=== PATIENT | female | born 1985 | race Hispanic/Latino ===

== ENCOUNTER 2017-08-11 21:16 | Observation (INO) | payer BC ==
[2017-08-11 22:13] LABS: #Lymphocytes 1.2 thou/uL (1.20-3.40); #Monocytes 0.3 thou/uL (0.11-0.59); #Neutrophils 8.1 thou/uL (1.40-6.50); %Basophils 0.1 % (0.0-1.0); %Eosinophils 0.1 % (0.0-10.0); %Lymphocytes 12.2 % (21.0-51.0); %Monocytes 3.3 % (0.0-10.0); Hematocrit 36.4 % (36.0-47.0); Mean Platelet Volume 7.8 fL (7.4-10.4); Red Blood Cell (RBC) Count 3.85 mill/uL (4.20-5.40); White Blood Cell (WBC) Count 9.6 thou/uL (4.8-10.8)
[2017-08-11 22:29] LABS: ALT (SGPT) 283 U/L (8-55); AST (SGOT) 506 U/L (5-34); Alkaline Phosphatase 92 U/L (40-150); Anion Gap 11 mmol/L (10-20); BUN (Urea Nitrogen) 11 mg/dL (7.0-18.7); Bilirubin, Total 1.6 mg/dL (0.2-1.2); Calc. Creatinine Clearance 0 mL/min (70-130); Calcium 8.7 mg/dL (7.8-10.44); Carbon Dioxide 23 mmol/L (22-29); Chloride 109 mmol/L (98-107); Estimated GFR-MDRD 86; Globulin 2.9 g/dL (2.4-3.5); Lipase 23 U/L (8-78); Protein, Total 6.5 g/dL (6.0-8.3)
--- NOTE | 2017-08-11 22:52 | ULT ---
GALLBLADDER ULTRASOUND: 08/11/17 HISTORY: Right upper quadrant pain. Real time images of the upper abdomen demonstrate multiple echogenic foci which shadowing within the gallbladder consistent with gallstones. Common duct is in the 7 to 8 mm range. The gallbladder wall appears somewhat thickened and edematous. The visualized liver parenchyma is unremarkable. Right ki dney is normal in size and nonobstructed. The pancreas is partially obscured. IMPRESSION: Multiple cholelithiasis with a thickened gallbladder wall and a mildly dilated common bile duct and a positive ultrasound Sanabria's sign. POS: [facility]
[2017-08-11] MEDS ORDERED: Ondansetron HCl/PF 4 MG/2 ML Vial ONE (23:35)
[2017-08-11] MEDS ORDERED: Morphine 2 MG/ML SYRINGE ONE (23:35)
[2017-08-11] MEDS ORDERED: Meropenem 1 GM, Admixture Fee 1 EACH in Sodium Chloride 0.9% 100 ML IVPB SCH (23:45)
[2017-08-12] MEDS ORDERED: Morphine 2 MG/ML SYRINGE SLOW IVP PRN ×5 (00:36→23:01)
[2017-08-12] MEDS ORDERED: Meropenem 1 GM, Admixture Fee 1 EACH in Sodium Chloride 0.9% 100 ML IVPB SCH (00:45)
[2017-08-12] MEDS: Sodium Chloride 0.9% 1,000 ML IV SCH ×4 (01:04→23:48)
[2017-08-12 01:27] VITALS: BMI 25.2
[2017-08-12 05:34] LABS: #Eosinphils 0.1 thou/uL (0.0-0.7); #Lymphocytes 2.1 thou/uL (1.20-3.40); #Monocytes 0.5 thou/uL (0.11-0.59); #Neutrophils 3.9 thou/uL (1.40-6.50); %Basophils 0.5 % (0.0-1.0); %Lymphocytes 31.6 % (21.0-51.0); %Monocytes 7.9 % (0.0-10.0); Hematocrit 34.3 % (36.0-47.0); Mean Platelet Volume 8.2 fL (7.4-10.4); Red Blood Cell (RBC) Count 3.59 mill/uL (4.20-5.40); White Blood Cell (WBC) Count 6.7 thou/uL (4.8-10.8)
[2017-08-12 05:51] LABS: ALT (SGPT) 365 U/L (8-55); AST (SGOT) 476 U/L (5-34); Alkaline Phosphatase 89 U/L (40-150); Anion Gap 8 mmol/L (10-20); BUN (Urea Nitrogen) 9 mg/dL (7.0-18.7); Bilirubin, Total 1.7 mg/dL (0.2-1.2); Calc. Creatinine Clearance 0 mL/min (70-130); Calcium 8.6 mg/dL (7.8-10.44); Carbon Dioxide 27 mmol/L (22-29); Chloride 109 mmol/L (98-107); Estimated GFR-MDRD 85; Globulin 2.7 g/dL (2.4-3.5); Lipase 18 U/L (8-78)
[2017-08-12] MEDS: Meropenem 1 GM, Admixture Fee 1 EACH in Sodium Chloride 0.9% 100 ML IVPB SCH ×2 (12:01→20:40)
[2017-08-12] MEDS ORDERED: Ondansetron HCl/PF 4 MG/2 ML Vial ONE ×2 (14:06→16:08)
[2017-08-12] MEDS ORDERED: Fentanyl 100 MCG/2 ML VIAL ONE ×2 (15:30→18:46)
[2017-08-12] MEDS ORDERED: Lidocaine 2% w/Epinephrine 1:200K 20 ML VIAL ONE (15:35)
[2017-08-12] MEDS ORDERED: Iothalamate Meglumine 60% 50 ML VIAL FS ONE ×2 (15:35→17:40)
[2017-08-12] MEDS ORDERED: Bupivacaine 0.25% HCL 30 ML VIAL ONE (15:35)
[2017-08-12] MEDS ORDERED: Propofol 200 MG/20 ML VIAL ONE ×2 (16:08)
[2017-08-12] MEDS ORDERED: PHENYLEPHRINE-NS 100 MCG/ML 10 ML SYRINGE ONE (16:08)
[2017-08-12] MEDS ORDERED: Ketorolac Tromethamine 30 MG/ML VIAL ONE (16:08)
[2017-08-12] MEDS ORDERED: Lidocaine 1% PF 5 ML VIAL ONE (16:08)
--- NOTE | 2017-08-12 16:41 | HP ---
CHIEF COMPLAINT: Epigastric pain. HISTORY OF PRESENT ILLNESS: Ms. Tan is a 31-year-old woman, who presented to the emergency room with a 1-day history of severe epigastric pain, radiating to her right upper quadrant, nausea and vo miting. She did not have any fevers, chills, jaundice or icterus. A CT done at an outside hospital suggestive of cholecystitis and she was sent here for ultrasound, which confirmed multiple gallston es with a thickened gallbladder wall, positive ultrasound Sanabria sign. Her bile duct was mildly dil ated and her LFTs were also slightly elevated. Her white count was initially elevated at 11.5, but has come down. Her bilirubin has gone from 1.3-1.7. AST went from 250-506 and then down to 476. A LT has gone from 127-365. The patient is currently uncomfortable and just has some soreness in her epigastric area. She states that she has had minor episodes of discomfort in the epigastrium after eating before, but none as severe as yesterday. The pain was brought on by eating and relieved by p ain medication received in the emergency room. It does hurt to take a deep breath or cough. PAST MEDICAL HISTORY: None. The patient used to have hypertension, but this resolved after gastric sleeve. PAST SURGICAL HISTORY: Gastric sleeve in [address] Smith. FAMILY HISTORY: Diabetes, hypertension, colon and breast cancer as well as multiple family members with gallstones. SOCIAL HISTORY: She does not smoke or drink, but does occasionally use marijuana. OUTPATIENT MEDICATIONS: None. INPATIENT MEDICATIONS: She was started on meropenem in the emergency room. ALLERGIES: She has an adverse drug reaction to PROCHLORPERAZINE. LABS AND IMAGING: Are as per HPI. REVIEW OF SYSTEMS: Ten-system review of systems is negative except per HPI. PHYSICAL EXAMINATION: VITAL SIGNS: The patient has been afebrile since her admission. Heart rate 55, respirations 14, 99 % saturated on room air, blood pressure 102/65. GENERAL: Reveals a healthy appearing young woman, in no acute distress. She is not jaundiced or ic teric in appearance. She is not flushed or toxic. HEENT: Unremarkable. NECK: Supple without lymphadenopathy or thyroid nodules. HEART: Regular in its rate and rhythm without murmurs, rubs or gallops. LUNGS: Clear to auscultation bilaterally. ABDOMEN: Soft and nondistended. She is moderately tender to palpation in the right upper quadrant and epigastrium without rigidity, rebound or guarding. There are no palpable masses or hernias and her laparoscopic incisions are well healed. EXTREMITIES: Warm and well perfused without edema. NEUROLOGIC: No focal deficits. PSYCHIATRIC: Alert, oriented, and appropriate. ASSESSMENT: Cholelithiasis, cholecystitis, possible choledocholithiasis. She has been seen by Dr. Diaz who favors laparoscopic cholecystectomy with intraoperative cholangiogram first. If this is positive, he would plan to do an ERCP under the same anesthesia. The patient's diagnosis and rec ommended treatment plan were discussed with her in detail. The procedure of laparoscopic cholecyste ctomy was also explained. The inherent risks of surgery were discussed. These include but are not limited to bleeding, infection, risks of anesthesia, damage to nearby structures including bowel, li baylee and bile duct, need for other operations, need for open surgery and she understands and accepts these risks and wishes to proceed. We will continue her on meropenem in the perioperative period.
--- NOTE | 2017-08-12 17:31 | RAD ---
OPERATIVE CHOLANGIOGRAM: History: Intraoperative films. FINDINGS: A series of four films presented for interpretation. These show filling of a nondilated common bile duct. I do not see any definite filling defects. There is minimal emptying into the duodenum. Distal common duct is slightly irregular. IMPRESSION: No evidence of filling defects or signs of obstruction. POS: [facility]
[2017-08-12] MEDS ORDERED: Ondansetron HCl/PF 4 MG/2 ML Vial IVP PRN (18:31)
--- NOTE | 2017-08-12 18:45 | CON ---
DATE OF CONSULTATION: 08/12/2017 REFERRING PHYSICIAN: Navid Gonzalez M.D. REASON FOR CONSULTATION: Abdominal pain, abnormal LFTs and also dilation of the CBD on sonogram. HISTORY OF PRESENT ILLNESS: Ms. Loly Tan is a very pleasant 31-year-old female with gallstones, common bile duct stone and dilation of the CBD on sonogram. The patient has had gastric sleeve luba ann marie [address] Aakash Smith. She has lost 150 pounds since surgery. The patient has had abd ominal pain off and on. On 09/2016, she had seen Dr. Aakash Smith for abdominal pain. She underwent a sonogram and was told she had gallstones. She was advised to wait and see if the pain recurs. Th patient has had mild pain off and on. The patient with severe abdominal pain yesterday with some nausea and vomiting. The pain is over the right upper quadrant epigastric area and periumbilical ar ea. The patient came to the ER, had abdominal sonogram. Sonogram shows multiple gallstones in the gallbladder and also dilation of CBD. There is also elevation in LFTs indicative of possibly common bile duct stone. The patient continued to have abdominal pain and nausea. She has had no fever or chills. There is no family history of gallstones. She has no relevant symptoms. ALLERGIES: PHENERGAN. SOCIAL HISTORY: The patient is . She does not smoke or drink alcohol. PAST MEDICAL HISTORY: Obesity, status post gastric sleeve 2 years ago. No history of diabetes, hyp ertension, heart disease, lung disease. PAST SURGICAL HISTORY: Status post gastric sleeve 2 years ago. MENSTRUAL HISTORY: Periods are regular. LMP at the present time. She bleeds for 4 days. REVIEW OF SYSTEMS: A 10-point system review is really unremarkable except for the abdominal pain an d nausea. PHYSICAL EXAMINATION: GENERAL: The patient is in moderate discomfort. VITAL SIGNS: Afebrile, pulse is 62, blood pressure 112/67. HEENT: Conjunctivae clear. NECK: Supple. No adenitis or thyromegaly noted. CARDIOVASCULAR: First and second heart sounds normal. LUNGS: Clear to auscultation. ABDOMEN: Soft to palpate. Abdomen is tender with right upper quadrant epigastric area. There is n o rebound or guarding. No organomegaly or masses. EXTREMITIES: Reveal no edema. LABORATORY DATA: From today, sodium 140, potassium 4, chloride 109, bicarbonate 27, BUN is 9, creat inine is 0.79, glucose is 87, calcium 8.7, bilirubin 1.7, AST came down to 476 from 506, ALT 365, al kaline phosphatase is 89, lipase 18. CBC: WBC 6700, hemoglobin 11.5, hematocrit 34.6, MCV 95.6, pl atelet count 197,000, volume loss 58, lymphocytes 31, monocytes 7. Abdominal sonogram, multiple gal lstones in the gallbladder and also dilation of the CBD to 7 mm. CLINICAL IMPRESSION: 1. Acute cholecystitis, choledocholithiasis. 2. Status post gastric sleeve in 2014. PLAN: Laparoscopic cholecystectomy followed by ERCP followed by cholecystomy. I will discuss with Dr. Gonzalez and see how to . I met with the patient's and explained to him about the p rocedure and the risks, etc. She has had gastric sleeve surgery which may make it difficult to real ly maneuver the scope. This was explained to the patient and patient's . They fully underst ood the procedure, risks, and benefits. I will plan for ERCP today after discussing with Dr. Sofia cleary
--- NOTE | 2017-08-12 19:02 | RAD ---
ERCP SIX VIEWS: History: Patient is status post cholecystectomy. Comparison: Operative cholangiogram done earlier today. FINDINGS: Contrast is injected into the common bile duct which is nondilated. On the previous operative cholan giogram there is some irregularity to the distal common duct, more difficult to assess on these imag es. There is a balloon present in the area of narrowing on some of these films. IMPRESSION: ERCP findings as above. POS: [facility]
[2017-08-12] MEDS ORDERED: HYDROcodone/Acetaminophen 7.5/325 mg Tablet PO PRN ×2 (20:06)
[2017-08-12] MEDS: Ondansetron HCl/PF 4 MG/2 ML Vial SLOW IVP PRN (23:18)
[2017-08-13] MEDS: Meropenem 1 GM, Admixture Fee 1 EACH in Sodium Chloride 0.9% 100 ML IVPB SCH ×3 (04:27→20:16)
[2017-08-13] MEDS: Sodium Chloride 0.9% 1,000 ML IV SCH ×2 (04:30→17:19)
--- NOTE | 2017-08-13 05:30 | OP ---
DATE OF PROCEDURE: 08/12/2017 OPERATIVE PROCEDURE: 1. Endoscopic retrograde cholangiopancreatography with papillotomy. 2. Common bile duct stone extraction with a balloon size 9-12 mm biliary balloon. PREOPERATIVE DIAGNOSES: Abnormal liver function tests, common bile duct stone. POSTOPERATIVE DIAGNOSIS: Common bile duct stone, status post extraction with a balloon. Two stones removed, one stone was measuring approximately 1 cm, the other one was probably about 7 mm. PROCEDURE IN DETAIL: The patient was already intubated for her laparoscopic cholecystectomy. The p atient was placed on the fluoroscopic table on her left lateral position and turned on her stomach. A bite block was placed. A Pentax video duodenoscope under direct vision was passed down the oroph arynx, past the gastroesophageal junction, into the stomach and subsequently into the descending duo denum. The papilla was identified. The papilla was selectively cannulated over a guidewire. Upon injection of contrast, shows normal caliber bile duct, but does show a filling defect. A papillotom y was made at the 12 o'clock position. Almost about 1.25-1.5 cm papillotomy made. After the papill otomy, this drainage of bile and a small stone came up. The papillotome was changed the biliary bal loon size 9-12 mm. The balloon was introduced into the common bile duct to 9mm and the balloon was brought out with the extraction of 2 stones. Subsequently, the balloon was inflated to 12 mm and ag ain, the bile duct was swept by the balloon and there was good biliary drainage noted. There was on e more balloon sweep done with the balloon with good drainage of bile. The stomach was decompressed and the scope was removed. DISCHARGE RECOMMENDATIONS: NPO and diet as per Dr. Gonzalez.
[2017-08-13 06:02] LABS: #Lymphocytes 1.5 thou/uL (1.20-3.40); #Monocytes 0.4 thou/uL (0.11-0.59); #Neutrophils 4.8 thou/uL (1.40-6.50); %Basophils 0.4 % (0.0-1.0); %Eosinophils 0.6 % (0.0-10.0); %Lymphocytes 22.7 % (21.0-51.0); %Monocytes 6.2 % (0.0-10.0); Hematocrit 32.3 % (36.0-47.0); Mean Platelet Volume 7.9 fL (7.4-10.4); Red Blood Cell (RBC) Count 3.36 mill/uL (4.20-5.40); White Blood Cell (WBC) Count 6.8 thou/uL (4.8-10.8)
[2017-08-13 06:26] LABS: ALT (SGPT) 241 U/L (8-55); AST (SGOT) 156 U/L (5-34); Alkaline Phosphatase 87 U/L (40-150); Anion Gap 7 mmol/L (10-20); BUN (Urea Nitrogen) 9 mg/dL (7.0-18.7); Bilirubin, Total 1.1 mg/dL (0.2-1.2); Calc. Creatinine Clearance 111 mL/min (70-130); Calcium 8.1 mg/dL (7.8-10.44); Carbon Dioxide 26 mmol/L (22-29); Chloride 109 mmol/L (98-107); Estimated GFR-MDRD Greater than 90; Globulin 2.4 g/dL (2.4-3.5); Protein, Total 5.3 g/dL (6.0-8.3)
[2017-08-13 06:40] LABS: Lipase 1730 U/L (8-78)
[2017-08-13] MEDS: Ondansetron HCl/PF 4 MG/2 ML Vial SLOW IVP PRN ×2 (08:01→17:21)
[2017-08-13] MEDS: Morphine 2 MG/ML SYRINGE SLOW IVP PRN ×2 (08:04→20:54)
[2017-08-13] MEDS ORDERED: FLU VACC QS2017-18 36 mo. & older 0.5 ML SYRINGE IM ONE (09:00)
[2017-08-13] MEDS ORDERED: Hydrocodone-Acetamin 15 ML UDCUP PO PRN (15:48)
[2017-08-13] MEDS: Hydrocodone-Acetamin 15 ML UDCUP PO PRN (17:13)
--- NOTE | 2017-08-13 20:13 | PRG ---
DATE OF SERVICE: 08/13/2017 HISTORY OF PRESENT ILLNESS: Ms. Loly Tan is a very pleasant 31-year-old female hospitalized wit h acute cholecystitis, abnormal LFTs. She had a cholangiogram done, which revealed a common bile du ct stone. She underwent laparoscopic cholecystectomy followed by endoscopic retrograde cholangiopan creatography followed by papillotomy and stone removal. Her liver function tests are coming down. However, amylase bumped up to 1670. This seems just probably transient. Overall, she appears comfo rtable. She does have some abdominal pain over the operative site. She is tolerating clear liquid diet. OBJECTIVE: VITAL SIGNS: Afebrile, pulse 76, blood pressure 107/69. CARDIOVASCULAR SYSTEM: Within normal limits. LUNGS: Within normal limits. ABDOMEN: Soft and mildly tender over the operative site. LABORATORY DATA: Her liver function tests are actually coming down. Today, her AST is down to 156, ALT 241, bilirubin 1.1. Lipase is 1730 transient. RECOMMENDATION: 1. Advance diet as tolerated. 2. From a GI standpoint, she can be discharged home and follow up as an outpatient.
--- NOTE | 2017-08-13 22:35 | PRG ---
DATE OF SERVICE: 08/13/2017 SUBJECTIVE: Ms. Tan is having a fair amount of pain in the epigastric area following her laparos copic cholecystectomy and ERCP yesterday. Her lipase was somewhat elevated today at 1730, but her L FTs are declining. Her incisions look good. Her abdomen is somewhat quiet and she has not passed g as yet. ASSESSMENT: Status post laparoscopic cholecystectomy and endoscopic retrograde cholangiopancreatogr aphy. She appears to have mild post-endoscopic retrograde cholangiopancreatography pancreatitis and we will manage this symptomatically. I am going to leave her on clears for now. She has difficult y swallowing pills because of the gastric sleeve. I have changed her Lortab to Lortab elixir. Repe at labs have been ordered for the morning. If these are improved, I will plan to advance her diet a nd let her go home.
[2017-08-14] MEDS: Meropenem 1 GM, Admixture Fee 1 EACH in Sodium Chloride 0.9% 100 ML IVPB SCH ×3 (03:34→20:52)
[2017-08-14] MEDS: Sodium Chloride 0.9% 1,000 ML IV SCH ×2 (03:35→12:17)
[2017-08-14] MEDS: Hydrocodone-Acetamin 15 ML UDCUP PO PRN ×4 (03:42→20:57)
[2017-08-14 05:41] LABS: #Eosinphils 0.1 thou/uL (0.0-0.7); #Lymphocytes 1.7 thou/uL (1.20-3.40); #Monocytes 0.5 thou/uL (0.11-0.59); #Neutrophils 5.1 thou/uL (1.40-6.50); %Basophils 0.2 % (0.0-1.0); %Lymphocytes 23.5 % (21.0-51.0); %Monocytes 6.7 % (0.0-10.0); Hematocrit 32.2 % (36.0-47.0); Mean Platelet Volume 7.8 fL (7.4-10.4); Red Blood Cell (RBC) Count 3.44 mill/uL (4.20-5.40); White Blood Cell (WBC) Count 7.4 thou/uL (4.8-10.8)
[2017-08-14 05:58] LABS: ALT (SGPT) 176 U/L (8-55); AST (SGOT) 65 U/L (5-34); Alkaline Phosphatase 77 U/L (40-150); Anion Gap 7 mmol/L (10-20); BUN (Urea Nitrogen) 7 mg/dL (7.0-18.7); Bilirubin, Total 0.9 mg/dL (0.2-1.2); Calc. Creatinine Clearance 106 mL/min (70-130); Calcium 8.2 mg/dL (7.8-10.44); Carbon Dioxide 27 mmol/L (22-29); Chloride 106 mmol/L (98-107); Estimated GFR-MDRD Greater than 90; Globulin 2.5 g/dL (2.4-3.5); Lipase 559 U/L (8-78); Protein, Total 5.6 g/dL (6.0-8.3)
[2017-08-14] MEDS: Ondansetron HCl/PF 4 MG/2 ML Vial SLOW IVP PRN ×3 (08:38→23:25)
--- NOTE | 2017-08-14 17:24 | PRG ---
DATE OF SERVICE: 08/14/2017 Ms. Tan states that she is feeling a little better today, but still having quite a bit of nausea. She has been afebrile. Her vital signs are unremarkable. Her white count is normal and her LFTs are continuing to decline. Her lipase has gone from 1730-559, but she is still quite tender to palp ation in the epigastrium. Given her persistent nausea and poor oral intake, I am going to keep her for another day for IV hydration and repeat labs in the morning. I anticipate that by tomorrow, she will likely be ready to advance her diet and possibly discharge home.
[2017-08-15] MEDS: Sodium Chloride 0.9% 1,000 ML IV SCH ×2 (00:30→08:18)
[2017-08-15] MEDS: Meropenem 1 GM, Admixture Fee 1 EACH in Sodium Chloride 0.9% 100 ML IVPB SCH ×2 (04:19→12:52)
[2017-08-15 06:40] LABS: #Eosinphils 0.3 thou/uL (0.0-0.7); #Lymphocytes 1.8 thou/uL (1.20-3.40); #Monocytes 0.5 thou/uL (0.11-0.59); #Neutrophils 2.7 thou/uL (1.40-6.50); %Basophils 0.9 % (0.0-1.0); %Eosinophils 5.2 % (0.0-10.0); %Lymphocytes 33.8 % (21.0-51.0); %Monocytes 8.7 % (0.0-10.0); Hematocrit 30.4 % (36.0-47.0); Mean Platelet Volume 8.1 fL (7.4-10.4); Red Blood Cell (RBC) Count 3.26 mill/uL (4.20-5.40); White Blood Cell (WBC) Count 5.2 thou/uL (4.8-10.8)
[2017-08-15 07:04] LABS: ALT (SGPT) 124 U/L (8-55); AST (SGOT) 32 U/L (5-34); Alkaline Phosphatase 68 U/L (40-150); Anion Gap 5 mmol/L (10-20); BUN (Urea Nitrogen) 5 mg/dL (7.0-18.7); Bilirubin, Total 0.4 mg/dL (0.2-1.2); Calc. Creatinine Clearance 124 mL/min (70-130); Calcium 8.2 mg/dL (7.8-10.44); Carbon Dioxide 29 mmol/L (22-29); Chloride 108 mmol/L (98-107); Estimated GFR-MDRD Greater than 90; Globulin 2.3 g/dL (2.4-3.5); Lipase 277 U/L (8-78); Protein, Total 5.1 g/dL (6.0-8.3)
[2017-08-15 08:22] VITALS: TEMP 98.8
--- NOTE | 2017-08-15 09:05 | PRG ---
DATE OF SERVICE: 08/15/2017 SUBJECTIVE: Ms. Tan is feeling a little bit better today. She had a lot of nausea yesterday lanette payton just with clear liquids. Her pain, however, has diminished significantly. Vital signs are nor mal. Labs are still pending. Abdomen is soft, still operator to palpation in the epigastrium. Her i ncision looks good and her tenderness has decreased compared to yesterday. ASSESSMENT AND PLAN: Post-endoscopic retrograde cholangiopancreatography pancreatitis, slowly impro ving. We will see how she does with clear liquids today. If her labs continue to decrease as antic ipated and she tolerates her clears, then we will likely advance her diet and if she tolerates this, then discharge home later today is a possibility.
[2017-08-15] MEDS: Hydrocodone-Acetamin 15 ML UDCUP PO PRN (10:57)
[2017-08-15 12:00] VITALS: BP 120/77
--- NOTE | 2017-08-16 16:14 | PDOC.OP ---
Operative Note - Operative Note Operative Note: PROCEDURE: Laparoscopic cholecystectomy with intraoperative cholangiogram SURGEON: Navid Gonzalez M.D. DATE OF PROCEDURE:08/12/2017 PREOPERATIVE DIAGNOSIS: Cholelithiasis and cholecystitis, possible choledocholithiasis: POSTOPERATIVE DIAGNOSIS: Cholelithiasis and cholecystitis, choledocholithiasis HISTORY: Ms. Alejandro is a 31-year-old woman who presented to the emergency room with abdominal pain consistent with biliary colic. LFTs were elevated. After discussion with gastroenterology recommendation was made to proceed with laparoscopic cholecystectomy and intraoperative cholangiogram, with ERCP if cholangiogram is abnormal. FINDINGS: Distended gallbladder, obstructed distal bile duct PROCEDURE IN DETAIL: After informed consent was obtained and appropriate preoperative antibiotics were administered, the patient was taken to the operating room and placed in the supine position and general endotracheal anesthesia was administered. The stomach was decompressed with an OG tube and the abdomen was prepped and draped in standard sterile fashion. Local anesthesia was infused to the skin and subcutaneous tissues at the umbilical level. A transverse skin incision was made. The fascia was elevated and a Veress needle was placed into the abdominal cavity without difficulty. Opening pressure was less than 5 and carbon dioxide gas easily insufflated to an intra- abdominal pressure of 15, which the patient tolerated well. The Veress needle was withdrawn and a [place] port advanced under direct vision. The abdominal cavity was carefully examined. There was no evidence of Veress needle or of trocar injury. Local anesthesia was infused to the skin and subcutaneous tissues at the epigastric, right upper quadrant, and right lateral abdominal sites and trocars were placed under direct vision of the laparoscope. The fundus of the gallbladder was grasped and retracted superiorly. The infundibulum was grasped and retracted laterally. The serosa was stripped inferiorly at the level of the neck of the gallbladder exposing the cystic duct and artery which were traced clearly to their insertion in the gallbladder. These were dissected free circumferentially and the cystic duct was clipped at the level of the neck of the gallbladder. The cystic artery was clipped but not divided. An incision was made in the cystic duct inferior to the clip and the cystic duct was palpated with no stones palpable. Clear bile was seen to flow from the cystic duct incision. A cholangiogram catheter was introduced and placed into the cystic duct and secured with a clip. A cholangiogram was obtained which showed an adequate length of cystic duct. There was normal filling of the proximal common bile duct with no flow of contrast into the duodenum. There was normal retrograde flow into the common hepatic duct beyond the level of the bifurcation without filling defects. Glucagon was administered and: 2 g repeated with no improvement. Gastroenterology was consulted and ERCP planned for immediately after the operation. The cholangiogram catheter was removed and the cystic duct clipped below the incision in the cystic duct. The cystic duct was divided between these clips and the previously placed clip. The cystic artery was clipped and divided between the previously placed clips. The gallbladder was then dissected free of the gallbladder bed using hook electrocautery. Prior to complete removal of the gallbladder from the gallbladder bed, the area of the cystic duct and artery stumps was examined. The clips were in good position completely across these structures and there was no bleeding and no leakage of bile. The gallbladder was then placed into an EndoCatch bag and drawn out through the epigastric incision. The epigastric trocar was replaced and the operative site easily irrigated to clear. There was no significant bleeding or spillage of bile. The epigastric trocar was removed and the fascia closed under direct laparoscopic vision with a 0 Vicryl suture on a GraNee needle in a [id number] manner with excellent technical result. The right upper quadrant and right lateral abdominal trocars were removed and hemostasis verified. Carbon dioxide gas was allowed to desufflate through the umbilical trocar which was then removed. The skin incisions were closed with 4- 0 subcuticular Monocryl sutures and Dermabond dressings were placed. The patient was taken to endoscopy for immediate ERCP in good condition. There were no complications. ESTIMATED BLOOD LOSS: Minimal. SPECIMEN : Gallbladder and contents.
== END 2017-08-15 15:42 | disposition home or self-care (01) ==
LOC: ERS 21:16 → SURG A 08-12 00:36 → INTOOBSV 08-12 00:36
PROVIDERS: ADMIT Surgery; ATTEND Surgery
PROC: 0FT44ZZ Resection of Gallbladder, Percutaneous Endoscopic Approach (ICD-10-PCS; principal; 2017-08-12)
PROC: BF00YZZ Plain Radiography of Bile Ducts using Other Contrast (ICD-10-PCS; 2017-08-12)
PROC: 0FC98ZZ Extirpation of Matter from Common Bile Duct, Via Natural or Artificial Opening Endoscopic (ICD-10-PCS; 2017-08-12)
DX: K80.44 Calculus of bile duct with chronic cholecystitis without obstruction (principal); I10 Essential (primary) hypertension; Z88.8 Allergy status to other drugs, medicaments and biological substances; Z98.84 Bariatric surgery status
CPT/HCPCS: 36415; 47532; 74330; 76705; 80053; 83690; 84703; 85025; 88304; 90471; 90682; 96361; 96365; 96366; 96374; 96375; 96376; A4216; G0008; G0378; J1610; J1644; J1885; J2001; J2185; J2270; J2405; J2704; J3010; J7050; Q2036; Q9961; S0020